=== PATIENT | female | born 1960 | race Caucasian/White ===

== ENCOUNTER 2017-05-25 13:08 | Emergency (ER) | payer OTHER ==
[2017-05-25 13:18] VITALS: RESP 18
--- NOTE | 2017-05-25 14:41 | ED ---
Head Injury HPI - General Chief complaint: Head Injury Stated complaint: Head Injury-[facility] Time Seen by Provider: 05/25/17 13:25 Source: patient, RN notes reviewed, old records reviewed Mode of arrival: ambulatory Limitations: no limitations - History of Present Illness Initial comments: This patient is a 57-year-old female presents emergency Department with a chief complaint of a head injury that occurred on Thursday. She reports that she was sent in by her work today for further evaluation. She states that on Thursday she was lifting a table up when the back part of the metal table hit her in the posterior upper scalp. She had no loss of consciousness at that time. She reports that since Thursday she's had a mild headache, and feels foggy. Patient reports that she has no significant vision changes, denies any significant dizziness. 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 Patient reports that she was also sent in today because she is having some upper respiratory congestion and they wanted her to be Further evaluation. She denies any nausea or vomiting. - Related Data Home Medications Medication Instructions Recorded Confirmed No Known Home Medications [No 05/25/17 05/25/17 Known Home Medications] Allergies/Adverse reactions: Allergies Allergy/AdvReac Type Severity Reaction Status Date / Time bupropion [From Zyban] Allergy Rash/Hives Verified 05/25/17 13:37 Review of Systems ROS Statement: Those systems with pertinent positive or pertinent negative responses have been documented in the HPI. ROS Other: All systems not noted in ROS Statement are negative. Past Medical History Past Medical History: No Reported History History of Any Multi-Drug Resistant Organisms: None Reported Past Surgical History: Orthopedic Surgery Additional Past Surgical History / Comment(s): left shoulder Past Psychological History: No Psychological Hx Reported Smoking Status: Former smoker Past Alcohol Use History: Occasional Past Drug Use History: None Reported General Exam - General Exam Comments Initial Comments: This patient is a 57-year-old female. Patient does not appear to be in any acute distress. Limitations: no limitations General appearance: alert, in no apparent distress Head exam: Present: atraumatic, normocephalic, normal inspection Eye exam: Present: normal appearance ENT exam: Present: normal exam, mucous membranes moist, other (Minor rhinorrhea) Neck exam: Present: normal inspection. Absent: tenderness, meningismus, lymphadenopathy Respiratory exam: Present: normal lung sounds bilaterally. Absent: respiratory distress, wheezes, rales, rhonchi, stridor Cardiovascular Exam: Present: regular rate, normal rhythm, normal heart sounds. Absent: systolic murmur, diastolic murmur, rubs, gallop, clicks GI/Abdominal exam: Present: soft, normal bowel sounds. Absent: distended, tenderness, guarding, rebound, rigid Extremities exam: Present: normal inspection, full ROM, normal capillary refill. Absent: tenderness, pedal edema, joint swelling, calf tenderness Back exam: Present: normal inspection Neurological exam: Present: alert, oriented X3, CN II-XII intact Expanded Patient oriented to: Present: person, place, time Speech: Present: fluid speech Cranial nerves: EOM's Intact: Normal Cerebellar function: Finger to Nose: Normal Upper motor neuron: Pronator Drift: Normal Sensory exam: Upper Extremity Light Touch: Normal, Lower Extremity Light Touch: Normal Motor strength exam: RUE: 5, LUE: 5, RLE: 5, LLE: 5 Eye Response: (4) open spontaneously Motor Response: (6) obeys commands Verbal Response: (5) oriented Jeffrey Total: 15 Psychiatric exam: Present: normal affect, normal mood Skin exam: Present: warm, dry, intact, normal color. Absent: rash Course Vital Signs 05/25/17 05/25/17 13:14 14:57 Temperature 97.6 F 97.9 F Pulse Rate 104 H 85 Respiratory 18 18 Rate Blood Pressure 114/57 120/69 O2 Sat by Pulse 99 98 Oximetry Medical Decision Making - Medical Decision Making This patient is a 49-year-old female presents emergency Department chief complaint of a head injury that occurred 2 days ago, and continued fogginess. She has no focal neurological deficit this time. She reports that she felt that she was having a hard time with somatic problems. At this time I discussed risk and benefits of CT. I did offer to do the CT for the patient. I discussed that she is out of that time frame For given close monitoring this far out from a head injury. I discussed with the patient that she should take Motrin Tylenol for pain, and she does have a concussion with the symptoms she is having. I discussed that I will test for the influenza due to a rhinorrhea and congestion. Patient's influenza test is negative. I discussed if she has any further issues for her to return to emergency department or follow-up with her primary care provider. Again patient elects to avoid doing a computed tomography scan at this time. I discussed concussion instructions as well. - Lab Data Lab Results 05/25/17 Range/Units 13:50 Influenza Type A RNA Not Detected (Not Detectd) Influenza Type B (PCR) Not Detected (Not Detectd) Disposition Clinical Impression: Concussion Disposition: HOME SELF-CARE Condition: Good Instructions: Concussion (ED) Additional Instructions: Patient has a Motrin or Tylenol for pain headaches. Apply ice over the area of the skull. Patient should return to the emergency department if any alarming signs or symptoms occur. Referrals: Sebastian Mccain DO [Primary Care Provider] - 1-2 days Time of Disposition: 14:41
[2017-05-25 14:59] VITALS: BP 120/69; PULSE 85; TEMP 97.9
== END 2017-05-25 14:57 | disposition home or self-care (01) ==
LOC: EC 13:08
DX: S06.0X0A Concussion without loss of consciousness, initial encounter (principal); J34.89 Other specified disorders of nose and nasal sinuses; Z87.891 Personal history of nicotine dependence; Z88.8 Allergy status to other drugs, medicaments and biological substances; W22.8XXA Striking against or struck by other objects, initial encounter; Y93.89 Activity, other specified; Y92.69 Other specified industrial and construction area as the place of occurrence of the external cause; Y99.0 Civilian activity done for income or pay
CPT/HCPCS: 87502; 99284